=== PATIENT | male | born 1935 | race Caucasian/White ===

== ENCOUNTER → 2016-05-22 16:44 | Outpatient (CLI) | payer MEDICARE, BC ==
[2015-09-02 00:15] VITALS: BMI 22.6
[~2016-05-22 16:44] MED LIST: CARAFATE1 G PO; FLOMAX0.4 MG PO; HEMOCYTE PLUS C1 CAP PO; HYDROCODON-ACE1 EAC7 PO; LIPITOR10 MG PO; NORVASC10 MG; NORVASC5 MG PO; TYLENOL PM1 TAB PO; ZESTORETIC 20/21 TAB PO
== END | disposition home or self-care (01) ==
LOC: D.MAMMO 10:30
DX: N63 Unspecified lump in breast (principal)

== ENCOUNTER → 2017-08-25 08:02 | Outpatient (CLI) | payer MEDICARE, BC ==
[2015-09-02 00:15] VITALS: BMI 22.6
== END | disposition home or self-care (01) ==
LOC: D.CT 08:02
DX: R10.9 Unspecified abdominal pain (principal)

== ENCOUNTER → 2019-01-28 13:00 | Outpatient (CLI) | payer MEDICARE, OTHER ==
[2015-09-02 00:15] VITALS: BMI 22.6
== END | disposition home or self-care (01) ==
LOC: D.US 13:00
PROVIDERS: ATTEND Internal Medicine Interventional Cardiology
DX: R42 Dizziness and giddiness (principal); I65.23 Occlusion and stenosis of bilateral carotid arteries